=== PATIENT | female | born 1930 | race Caucasian/White ===

== ENCOUNTER 2017-01-23 23:35 | Inpatient (IN) | payer MEDICARE ==
[~2017-01-23] VITALS: Ht 162.6 cm; Wt 39.7 kg
--- NOTE | ~2017-01-23 | CON ---
PATIENT'S NAME: DIALLO COLEMAN [facility] AGE: 86 Y [address] ROOM: [place] [address] LOCATION: GICU ADMIT DATE: 01/23/2017 Consultation DISCHARGE DATE: FAMILY PHYSICIAN: PHYSICIAN, UNKNOWN ATTENDING PHYSICIAN: JUAN CORTES REFERRING PHYSICIAN: ODILIA HOGUE MD Consult for Dr. Cortes, hospitalist. This 86-year-old lady who lives alone, but her son and [id number]-mmm live close by and attend to her needs most of the time with her children and was admitted on 01/23/2017 with left facial droop and slurring of speech. She reportedly fell and possibly hit her head with contusion on the upper left side of the forehead above the eyebrow, which is at the present time, sutured. Not quite, I able to fully attend to the left side at the present time. She has left facial droop, slurring of speech, a little bit unable to follow multiple instructions; however, she can follow one or two steps with some cueing. She is weak on the left upper and lower extremity at the present time also. Past history of significance, 1. Hypothyroid. 2. Hypertension. 3. Low back pain, status post surgery. 4. Status post hysterectomy. 5. Status post gastric bypass. 6. Status post knee surgery. 7. Status post shoulder surgery. At the present time, she is reporting allergies to aspirin. VITAL SIGNS: Blood pressure 109/62, temperature 98.2, pulse 97, respirations 12. She is 5 feet 4 inches tall and weighs 40.3 kg. She is on the following medications. 1. Zosyn. 2. Normal saline 0.9%. 3. Vancomycin. 4. Lipitor. 5. Plavix. 6. Lovenox. 7. Protonix. 8. Fentanyl. 9. Bengay. PATIENT'S NAME: DIALLO COLEMAN [facility] AGE: 86 Y [address] ROOM: [id number] [place] [address] LOCATION: [facility] ADMIT DATE: 01/23/2017 Consultation DISCHARGE DATE: FAMILY PHYSICIAN: PHYSICIAN, UNKNOWN ATTENDING PHYSICIAN: JUAN CORTES 10. NaCl 0.9% as I stated above. 11. Tylenol. 12. Levothyroxine. 13. Inapsine. 14. Niferex. 15. Dalmane. 16. Surfak. 17. Prilosec. 18. Rocephin. 19. KCl. We will put on PT/OT, Speech. We will follow Speech recommendation regarding pureed diet and thickened liquids as prescribed. She is at risk of falling and needs to be assisted at all time when up. At the present time, we will put her on PT/OT and Speech. I plan to take her to rehab when she is stable provided she is okayed by the admitting physician for a period of about 2 to 3 weeks aiming to discharge on modified independence. All the above was explained to her, her son, and her [id number]. They verbalized understanding and agreement. Thank you for this referral. MD TRE CARLSON/kari /[id number] d: 01/25/17 1417 t: 01/26/17 0749, CONSULTATION REPORT
--- NOTE | ~2017-01-23 | CON ---
PATIENT'S NAME: DIALLO COLEMAN [facility] AGE: 86 Y [address] ROOM: [place] [address] LOCATION: [facility] ADMIT DATE: 01/23/2017 Consultation DISCHARGE DATE: FAMILY PHYSICIAN: PHYSICIAN, UNKNOWN ATTENDING PHYSICIAN: NALDO CORTES DATE OF CONSULTATION: 01/25/2017 REFERRING PHYSICIAN: Naldo Cortes MD. REASON FOR CONSULT: Left forehead laceration. HISTORY OF PRESENT ILLNESS: This is an 86-year-old female patient who was admitted to [facility] after a fall. She has a significant history of hypertension and hypothyroidism. She experienced an unwitnessed fall at home and reports hitting her head. Initial head CT was negative. She is from [place], [place]. She has intact Steri-Strips to her left forehead. She denies fevers. She reports 10/10 head pain. She admits to poor oral intake and weight loss. She denies chest pain. She complains of being cold and her mouth is dry. She also has a skin tear to her left forearm. No pressure ulcers noted. PAST MEDICAL HISTORY: Hypothyroidism, hypertension, hypercholesteremia, anemia, and atrial fibrillation. PAST SURGICAL HISTORY: Gastric bypass, bilateral knee replacement, shoulder surgery, toe surgery, spine fusion, hysterectomy. FAMILY HISTORY: Mother suffering from cancer and father had a stroke. SOCIAL HISTORY: The patient lives with her family in [place], [place]. She denies tobacco or alcohol use. ALLERGIES: SULFA, FOSAMAX, ASPIRIN, MORPHINE, TERRAMYCIN, MIRAPEX, SULFABENZAMIDE, SULFACETAMIDE, SULFATHIAZOLE. CURRENT MEDICATIONS: PATIENT'S NAME: DIALLO COLEMAN [facility] AGE: 86 Y [address] ROOM: [id number] [place] [id number] LOCATION: [facility] ADMIT DATE: 01/23/2017 Consultation DISCHARGE DATE: FAMILY PHYSICIAN: PHYSICIAN, UNKNOWN ATTENDING PHYSICIAN: NALDO CORTES Please refer to the medication administration record. REVIEW OF SYSTEMS: Pertinent positives addressed in the HPI and all others are negative. PHYSICAL EXAMINATION: VITAL SIGNS: Temperature 99.4, pulse 95, respirations 24, blood pressure 111/66, pulse oximetry 96%, height 5 feet 4 inches and weight 40.3 kg. GENERAL: The patient is alert and oriented x3. Appears thin and frail. HEENT: Obvious laceration to the left forehead and tenriism area. Steri-Strips intact with dry exudate noted. Anicteric sclerae. Oral mucosa dry. At times difficult to understand the patient due to dry mouth. Lips dry, cracked. CARDIOVASCULAR: Irregular rate noted on the monitor. ABDOMEN: Flat. EXTREMITIES: No edema. Heels intact. Obvious arthritic changes to bilateral feet. NEUROLOGICAL: Slight left-sided facial droop. SKIN: Left forehead and tenriism laceration with intact Steri-Strips. Dry bloody exudate noted. Slight ecchymosis. C-shaped skin tear to left posterior forearm. Majority of the wound is approximated with a skin flap. Scant bloody exudate noted. Area is ecchymotic. No other skin issues. Buttocks intact. LABORATORY DATA: Hemoglobin A1c 5.3, procalcitonin 0.72, TSH 0.005. White blood cell count 16.2, hemoglobin 10.3, hematocrit 30.8, platelets 330. Sodium 135, potassium 3.5, chloride 100, bicarb 26, BUN 20, creatinine 0.8, glucose 125, and albumin 2.2. ASSESSMENT AND PLAN: Again, this is an 86-year-old female patient who was admitted to [facility] after a fall. 1. Left forehead and temporal laceration secondary to fall on January 23. Steri-Strips intact to the site. We will leave intact until later this week and make further recommendations at that time. The patient was only able to tolerate mild cleansing as the site is tender to touch. 2. Left posterior forearm skin tear. We will initiate the skin tear protocol with Vaseline gauze and Kerlix changing daily. 3. Pressure ulcer prevention. The patient is to be turned bed q.2 hours side to side while in bed. Iris cushion is already in her chair. Certainly, she is at high risk for pressure ulceration as she is very thin and frail and currently n.p.o. Dietary is on board and she will have a modified barium swallow study today. I would like to thank Dr. Cortes for this consult. PATIENT'S NAME: STEPH COLEMANTA Nguyen [facility] AGE: 86 Y [address] ROOM: [id number], [place] [address] LOCATION: [facility] ADMIT DATE: 01/23/2017 Consultation DISCHARGE DATE: FAMILY PHYSICIAN: PHYSICIAN, CASEY ATTENDING PHYSICIAN: NALDO CORTES BOZENA MADISON MD MKS/kari /[id number] d: 01/25/17 1051 t: 02/03/17 1543, CONSULTATION REPORT
--- NOTE | ~2017-01-23 | DS ---
PATIENT'S NAME: DIALLO COLEMAN [facility] AGE: 86 Y [address] ROOM: [place] [address] LOCATION: [facility] ADMIT DATE: 01/23/2017 Discharge Summary DISCHARGE DATE: 01/27/2017 FAMILY PHYSICIAN: Mitch Thibodeaux MD ATTENDING PHYSICIAN: Naldo Tomlinson PRINCIPAL DIAGNOSES: 1. Right ischemic cerebrovascular accident. 2. Escherichia coli urinary tract infection. 3. Escherichia coli bacteremia. 4. Atrial fibrillation, new diagnosis. 5. Fall. 6. Left scalp laceration. 7. Essential hypertension. 8. Iatrogenic hyperthyroidism. 9. Chronic back pain. 10. Severe protein-calorie malnutrition. 11. Vitamin D deficiency. 12. Frequent falls. HOSPITAL COURSE: Please reference any of the admitting data to the history and physical as dictated by Dr. Tomlinson. Briefly, this is an 86-year-old female who suffered a fall and was seen in an outlying facility where she was found to be in atrial fibrillation. She had some left-sided facial droop and slurred speech. A CT scan of her head was unremarkable. Neurology was contacted, and tPA was not recommended. The patient was transferred to [facility] for further evaluation and management. She was then admitted under the hospitalist. Initial presentation showed she was in atrial fibrillation with controlled ventricular rate. Blood pressures were stable. Her initial troponin was 0.404. An EKG showed left bundle-branch block. For this, a cardiology consultation was obtained. The patient was asymptomatic. She was hemodynamically stable. Her cardiac enzymes were trended and fell to 0.3 and 0.2 respectively. An echocardiogram showed preserved left ventricular ejection fraction of 50% to 55%. Left atrium was severely dilated. There was no evidence of PFO or ASD. They did not feel there was any indication for further intervention. Recommendations were given for anticoagulation when okay with Neurology. In the meantime, the patient was also placed on the stroke non-tPA order set. Neurology consultation was obtained. An MRI of the brain showed findings consistent with an acute ischemic infarct in the right cerebral hemisphere at the posterior right frontal region and adjacent parietal parenchyma area PATIENT'S NAME: DIALLO COLEMAN [facility] AGE: 86 Y [address] ROOM: [place] [address] LOCATION: GICU ADMIT DATE: 01/23/2017 Discharge Summary DISCHARGE DATE: 01/27/2017 FAMILY PHYSICIAN: Mitch Thibodeaux MD ATTENDING PHYSICIAN: Naldo Tomlinson involving the gaspar matter and white matter. She has a history of an allergy to aspirin, so she was placed on Plavix and high-dose statin therapy. She was placed on appropriate restorative cares with physical, occupational, and speech therapy. A physiatry consult was obtained. She was allowed for permissive hypertension before resuming her home beta-priyank for rate control 5 days after her stroke. The patient also presented with an elevated white blood cell count of 16,000. She was afebrile, but infectious workup found a positive urinalysis as well as positive blood culture. She had been empirically started on Zosyn, and when the blood culture data returned positive, she was started on vancomycin also. Final results showed E coli in her urine as well as E coli in her blood. A second blood culture showed Staph hominis sub species felt to be probable contaminant. So, the vancomycin was stopped, and her IV antibiotics were changed from Zosyn to Rocephin. We saw an overall improvement in her white blood cell count. Repeat blood cultures were negative. She was then transitioned to oral Levaquin at the time of discharge for recommendations for a total of 10-day antibiotic treatment. The patient did make some progress with therapies, and Dr. Cason felt that she was appropriate for transition to rehab. Recommendations for long-term anticoagulation were given by Cardiology once clearance given from a neurology perspective. A repeat CT scan was ordered for one week after discharge and will require followup. The remaining of her chronic conditions were maintained by her home medicines. She was given dietary and nutritional education and supplemental nutrition. Wound Care was also consulted for her left forehead laceration which was Steri- Stripped closed and appropriately cared for. LABORATORY AND DIAGNOSTIC DATA: Laboratory results: Initial white count of 16,000 with left shift had resolved in 24 hours. Her hemoglobin was between 8 and 10. Platelet count within normal limits. Chemistry panel most recent at the time of discharge showed a glucose of 101; BUN 15; creatinine 0.5; sodium 146; potassium 4.1, this did have to be corrected from 2.7 earlier in her stay; chloride of 115; CO2 of 24; and calcium of 8.1. Liver functions within normal limits. GFR greater than 60. Her hemoglobin A1c was 5.3. Total cholesterol was 109, triglycerides 118, HDL of 34, and LDL of 52. Her urinalysis upon presentation showed yellow turbid urine with positive leukocytes and positive nitrites. There were 30 proteins. It was negative for glucose, ketones, urobilinogen, and bilirubin. Microanalysis showed many bacteria with 50 to 100 white blood cells and was cultured out as positive for E coli. Her initial procalcitonin level was 0.72. Her TSH was less than 0.005 and free T4 of 2.7. PATIENT'S NAME: DIALLO COLEMAN [facility] AGE: 86 Y [address] ROOM: [id number], [place] [address] LOCATION: [facility] ADMIT DATE: 01/23/2017 Discharge Summary DISCHARGE DATE: 01/27/2017 FAMILY PHYSICIAN: Mitch Thibodeaux MD ATTENDING PHYSICIAN: Naldo Tomlinson Microbiology data: Blood culture from 01/24 showed E coli. Second blood culture grew Staph hominis sub species. Repeat blood cultures were negative. C diff test was negative. Radiologic imaging: An MRI of the brain with and without contrast showed an acute ischemic infarct in the right cerebral hemisphere at the posterior right frontal region and adjacent parietal parenchyma. Area of infarct involving the gaspar matter and white matter. She had generalized atrophic changes with white matter small vessel ischemic changes. There was also a small area of encephalomalacia from an old infarct in the inferior left cerebral hemisphere. There was no enhancing mass, midline shift, or abnormal extra-axial fluid collections. An MRA of the brain showed no vessel cut-off or focal area of stenosis identified at the [place]. There was a dominant left vertebral artery with small right vertebral artery. There was no aneurysm identified. An MRI of the neck showed no stenosis identified at the carotid bulb or origin of the internal carotid artery on the right or left. A chest x-ray showed cardiac enlargement with mild vascular congestion. There was diffuse interstitial prominence, likely reflecting interstitial edema. A right shoulder 2-view showed no acute fracture of the shoulder and bone osteopenia. Modified barium swallow study showed aspiration of thin liquid material and a mild delay in swallow initiation. A C-spine CT showed no acute findings. Cardiovascular Services: An echocardiogram showed a left ventricular ejection fraction of 50% to 55% with a left atrium that was severely dilated. There was no evidence of PFO or ASD by bubble study. There was a moderately sclerotic aortic valve and mild aortic regurgitation. She had mild pulmonary hypertension and positive for pleural effusion. DISCHARGE MEDICATIONS: 1. Vitamin C 1000 mg p.o. every day. 2. Atenolol 50 mg p.o. twice daily, hold for systolic blood pressure less than 100 or heart rate less than 60. 3. Lipitor 40 mg p.o. every evening at 2100 hours. 4. Vitamin D 1000 units p.o. every day. 5. Plavix 75 mg p.o. every morning. 6. Vitamin B12 at 1000 mcg subcu every 30 days. Next date of administration PATIENT'S NAME: DIALLO COLEMAN [facility] AGE: 86 Y [address] [id number] [address] LOCATION: [facility] ADMIT DATE: 01/23/2017 Discharge Summary DISCHARGE DATE: 01/27/2017 FAMILY PHYSICIAN: Mitch Thibodeaux MD ATTENDING PHYSICIAN: Naldo Tomlinson 02/22 at 0900 hours. 7. Lovenox 40 mg subcutaneous every day. 8. Fentanyl patch 12 mcg transdermally every 72 hours. 9. Lactobacillus one tablet p.o. every day. 10. Levothyroxine 125 mcg p.o. every day, this is a dose reduction. 11. Protonix 40 mg p.o. every day at 0700 hours. 12. Tylenol 650 mg p.o. every 4 hours as needed. 13. Lidocaine intradermal for IV starts. 14. Menthol 6%/menthyl salicylate topically to the lower back 4 times daily as needed. 15. Sodium chloride 10 mL flush as needed. 16. Gabapentin 100 mg p.o. twice daily. 17. Levaquin 750 mg p.o. every day for 5 more doses to equal a 10-day total of antibiotics administered. DISCHARGE INSTRUCTIONS: The patient will be transitioned to inpatient rehab under the care of Dr. Brandt Cason. We will continue to follow along as hospitalist for medical management. We will also have [facility] with Halima Kraus APRN, to follow from a neurologic perspective. A followup CT scan of the head without contrast has been ordered for one week. At that time, will require review from the neurology team, and if deemed appropriate, would like to initiate anticoagulation. Diet as per the Speech recommendations. Currently, the patient is improving; however, still requiring a modified diet. Health supplement is to be 3 times daily and as needed given she is a malnourished lady. Her weightbearing status is as tolerated. Fall precautions appropriately. Occupational, physical, and speech therapy to be directed by the physiatry team. Oxygen saturations are to be monitored, and if less than 90%, she should have application of oxygen. Followup laboratory data should be a thyroid-stimulating hormone and a free T4 in 6 weeks. She was significantly suppressed on her therapy of 225 mcg daily. We have now cut this back to 125 mcg daily and will follow accordingly. The left forehead laceration is Steri-Strip closed and cared for per the [facility] team. We will have them to continue to follow along while the patient is in inpatient rehab to provide appropriate recommendations and care of the wound. Rehab potential is good. Discharge potential is good. The patient and the family are well aware of her condition and prognosis. The patient requests to be do not intubate and do not resuscitate. We will continue those wishes as PATIENT'S NAME: DIALLO COLEMAN [facility] AGE: 86 Y [address] ROOM: [place] [address] LOCATION: [facility] ADMIT DATE: 01/23/2017 Discharge Summary DISCHARGE DATE: 01/27/2017 FAMILY PHYSICIAN: Mitch Thibodeaux MD ATTENDING PHYSICIAN: Naldo Tomlinson she transitions to next level of care. Total time arranging discharge is greater than 30 minutes. The above line of information and management was discussed with the patient, and all questions were answered with statements of satisfaction. Thank you for allowing us to participate in the care of this patient while at [facility]. ROSARIO ORTEZ APRN, BOZENA FOR MD EHSAN PACHECO/kari /[id number] d: t: 02/03/17 1423, DISCHARGE SUMMARY
--- NOTE | ~2017-01-23 | HP ---
PATIENT'S NAME: DIALLO COLEMAN [facility] AGE: 86 Y [address] ROOM: [id number] [place], [place] [address] LOCATION: [facility] ADMIT DATE: 01/23/2017 History & Physical DISCHARGE DATE: FAMILY PHYSICIAN: PHYSICIAN, UNKNOWN ATTENDING PHYSICIAN: JUAN CORTES DATE OF SERVICE: CHIEF COMPLAINT: Fall, left-sided facial droop, and some slurred speech. HISTORY OF PRESENT ILLNESS: This is an 86-year-old female who lives at home with her family members. The story is that today around 5:30 p.m. on January 23, 2017, the patient suffered a fall at home. Was found by her grandchildren. The patient did hit her head in the left frontal area, but she denies any loss of consciousness and there was no seizure activity. The grandchild who found the patient called the patient's daughter and they came home and called the ambulance. The patient was brought to the outside facility at [place] for evaluation. Over there, CT of the head was performed and based on the verbal report given to me it was unremarkable. Blood work was remarkable for hypokalemia with potassium 2.6, and the troponin was found to be elevated at 0.387. EKG was performed over there and showed atrial fibrillation, not in RVR with left bundle-branch block. The patient denies any chest pain or shortness of breath. The patient also denies any weakness or any sensation loss. The patient also denies any vision loss or blurry vision. Her kidney function was normal, creatinine was 0.74, GFR was 74 at outside facility. Due to the concern for stroke, on-call neurologist was contacted and the patient was transferred here for further care. Given that the patient's symptoms were already totally resolved by the time Neurology was contacted, tPA was not recommended at that time. Regarding the troponin elevation, I spoke to the on- call conservation enforcement officer, and the plan will be cycle cardiac enzymes given that the patient does not have any chest pain and also given that in the event the patient will have a stroke anticoagulation will be contraindicated due to the risk of hemorrhagic conversion. We will get an echo in the morning and EKG again in the morning and will be seen by Cardiology in the morning. The patient was transferred here for further care. REVIEW OF SYSTEMS: As mentioned in the history of present illness. All other systems were reviewed and they were negative except those mentioned in the history of present illness. PAST MEDICAL HISTORY: 1. Hypothyroidism. PATIENT'S NAME: DIALLO COLEMAN [facility] AGE: 86 Y [address] ROOM: [id number] [place] [id number] LOCATION: [facility] ADMIT DATE: 01/23/2017 History & Physical DISCHARGE DATE: FAMILY PHYSICIAN: PHYSICIAN, UNKNOWN ATTENDING PHYSICIAN: JUAN CORTES 2. Hypertension. The patient denies any other medical problem. Family members also deny any other medical problem. SOCIAL HISTORY: The patient denies any cigarette or illegal drug use or alcohol. FAMILY HISTORY: Father from some kind of blood cancer at old age. Mother had a stroke at old age. PAST SURGICAL HISTORY: 1. Lower back surgery. 2. Hysterectomy. 3. Gastric bypass surgery. 4. Knee surgery. 5. Shoulder surgery. ALLERGIES: ASPIRIN WHICH CAUSES RASH. HOME MEDICATIONS: Currently has been reconciled. PHYSICAL EXAMINATION: VITAL SIGNS: At the time of dictation, temperature is 99, heart rate 86, respirations 16, blood pressure 114/80, and saturation 94% on room air. GENERAL APPEARANCE: The patient is alert and oriented x3, in no acute distress. HEENT: Pupils equally round and reactive to light. Extraocular muscles intact. Anicteric sclerae. Nasal turbinates are normal bilaterally. Moist oral mucosa. NECK: No JVD. CARDIOVASCULAR: Regular rate and rhythm. No murmur, no rubs, and no gallops. Normal S1 and S2. RESPIRATORY: Clear to auscultation. ABDOMEN: Soft, nontender, nondistended. Bowel sounds present. No mass. EXTREMITIES: No edema in upper or lower extremities. NEUROLOGICAL: Alert and oriented x3. No obvious slurred speech, but sometimes she mumbles. Slight left-sided facial droop. Slight tongue deviation to the left side upon protrusion. She chronically has left upper extremity weakness due to her prior left shoulder surgery. Pronator drift only can be performed on the right upper extremity due to the left shoulder surgery in the left arm and the pronator drip was negative on the right upper PATIENT'S NAME: DIALLO COLEMAN [facility] AGE: 86 Y [address] ROOM: [id number] [place], [place] [address] LOCATION: [facility] ADMIT DATE: 01/23/2017 History & Physical DISCHARGE DATE: FAMILY PHYSICIAN: PHYSICIAN, UNKNOWN ATTENDING PHYSICIAN: JUAN CORTES extremity. Sensation intact. Jlwwzc-mw-npyr intact. Nesh-ng-acip intact. Muscle strength about 4/5 in right upper extremity, 2/5 in the left upper extremity. 5/5 in bilateral lower extremities. Babinski negative. Proprioception and vibration intact. Visual white intact. Deep tendon reflex +2 at both knees. SKIN: laceration and wound in left frontal area. Does not look infected, no active bleeding. No rash, no cyanosis. LABORATORY DATA: Currently only has a few which are CPK 32, troponin 0.4, proBNP 9364, glucose 123, BUN 22, creatinine 0.7, sodium 136, potassium 4.1, chloride 100, CO2 of 28, calcium 8.7, GFR more than 60, CK-MB 2.0. The rest is pending. IMAGING STUDIES: CT of the head without contrast from the outside facility, verbally given to me was unremarkable. EKG from the outside facility on January 23, 2017, at 6:29 p.m. showed atrial fibrillation, heart rate of 97, QRS of 144 with left bundle-branch block. Repeat EKG on January 23, 2017, at 9:04 p.m. showed atrial fibrillation, heart rate of 95, QRS 136 milliseconds, and still with left bundle-branch block pattern. EKG here on admission on, January 24, 2017, at 12:14 a.m. shows some atrial fibrillation, heart rate of 94, QRS of 138 milliseconds, still with the left bundle-branch block pattern. ASSESSMENT/PLAN: 1. Regarding her facial droop and slurred speech: We will get an MRI of the brain and MRA of the brain and neck tomorrow morning. Continue current medication with p.o. Lipitor and also p.o. Plavix. The patient has allergy to aspirin, therefore, I have given her p.o. Plavix. Echo in the morning. Follow up with Neurology. PT and OT. Bedside dysphagia screen; if passes, can have a cardiac diet. If fails, then will be n.p.o. and have a formal speech and swallow evaluation. Further plan depends on clinical course. Will check urine analysis. 2. Regarding her troponin elevation: Continue cycling cardiac enzymes. The patient does not have any chest pain. EKG has left bundle-branch block. Therefore, it is hard to interpret it. Given that the patient could have a stroke but is not quite clear at the moment, therefore, blood thinner is not a good choice at this point because it could cause hemorrhagic transformation in the brain if the patient indeed had a stroke. Given that the patient is hemodynamically stable and no chest pain, therefore, after speaking to the on-call conservation enforcement officer Dr. Kat, the plan will be cycling cardiac enzymes, and if it is more than 5, then on-call conservation enforcement officer will PATIENT'S NAME: DIALLO COLEMAN [facility] AGE: 86 Y [address] ROOM: [id number] [place] [address] LOCATION: [facility] ADMIT DATE: 01/23/2017 History & Physical DISCHARGE DATE: FAMILY PHYSICIAN: PHYSICIAN, UNKNOWN ATTENDING PHYSICIAN: JUAN CORTES take the patient to the microbiology lab manager. Echo in the morning and EKG again in the morning. I will not do p.o. Lopressor given that in the setting of possible stroke I want to keep the blood pressure on the higher end. She also has a high proBNP. This could be the cause of troponin elevation. I will get a chest x-ray to see if there is any pleural effusion suggesting heart failure. Clinically, the patient does not look volume overloaded and is saturating at 96% on room air. However, I will get a chest x-ray to see for any evidence of vascular congestion or pleural effusion. Further plan will depend on clinical course. 3. Regarding her atrial fibrillation: Not sure if this is new or this is old. Family members do not know and the patient also does not. I will defer to Cardiology for evaluation in the morning. For now, the rate is under good control in the 80s. I will check a TSH and free T4. 4. Regarding her hypertension: Home medications are currently being reconciled. I will hold all the home medications for now to try to keep the blood pressure on the higher end. 5. Regarding her deep venous thrombosis prophylaxis: She will be getting subcu Lovenox. 6. She is do not resuscitate/do not intubate. Time spent in care on the day of admission is 50 minutes where 30 minutes were spent on counseling by answering the family members' questions and concerns and the patient's questions and concerns to their satisfaction. Also includes going over the plan of care with the patient and her family members. The remainder of the time was spent on interview and chart review and also on physical examination. Further plan will depend on clinical course. MD DEVONTE ARNOLD/kari /[id number] D: [id number] T: 211 HISTORY & PHYSICAL
--- NOTE | ~2017-01-23 | ECHO ---
Transthoracic Echocardiography Report (TTE) Demographics Patient Name DIALLO COLEMAN Date of Study 01/24/2017 Patient Number [id number] Visit Number [id number] Date of 1930 Room Number P3975SX Accession Number [id number] Gender Female Age 86 year(s) Referring Bushra Hermosillo MD Tunnel Kiln Operator Ignacia Hector RD, Physician RVT Physician Interpreting Shey Barba Head Nurse Physician Bulmaro NORTH Supervising Ordering Physician Bushra Hermosillo MD, MD/MLP Nurse Stress Web Machine Tender Conclusions Contractility Score Summary Normal Left Ventricular contractility was noted. Summary The estimated left ventricular ejection fraction is 50-55%. Mild concentric left ventricular hypertrophy. Mildly reduced right ventricular function. The left atrium is severely dilated by LA volume index measurement. Informed consent was obtained, bubble study was done, there is no evidence for a PFO or ASD. The aortic valve is moderately sclerotic. There is mild aortic regurgitation by color Doppler. Mild-moderate tricuspid regurgitation by color Doppler. There is mild pulmonary hypertension. The pulmonary pressure (RVSP) is 39.58 mmHg. Pleural effusion present. Procedure Type of Study TTE procedure:2D Echocardiogram. Procedure Date Date: 01/24/2017 Start: 11:50 AM Study Location: Inpatient Portable Technical Quality: Adequate visualization Indications:Elevated Troponin. Appropriate Use Criteria: 9 Patient Status: Routine Contrast Medium: Bubble Study. Rhythm: Atrial fibrillation HR: 105 bpm BP: 113/60 mmHg M-Mode/2D Measurements LV Diastolic Dimension: 3.22 cm LV Systolic Dimension: 2.19 cm LV Septum Diastolic: 1.02 cm LV PW Diastolic: 1.02 cm Cardiac Output: 3.71 l/min LA volume: 78 ml RV Diastolic Dimension: 3.18 cm LVOT: 1.8 cm LVOT VTI: 13.9 cm LV Stroke volume: 35.35 ml RV Mid: 1.83 cm RV Length: 4.84 cm TAPSE: 1.43 cm TDI-S': 10.5 cm/s Doppler Measurements AV Peak Velocity: 1.69 m/s MV Peak E-Wave: 1.05 m/s AV Peak Gradient: 11.42 mmHg AV Mean Gradient: 6 mmHg LVOT Peak Velocity: 0.76 m/s AV P1/2t: 510 msec PV Peak Velocity: 1.01 m/s TR Velocity:2.81 m/s PV Peak Gradient: 4.08 mmHg TR Gradient:31.58 mmHg Estimated PASP: 39.58 mmHg Estimated RAP:8 mmHg Estimated RVSP: 40 mmHg E' Septal Velocity: 0.08 m/s E' Lateral Velocity: 0.12 m/s Findings Left Ventricle Mild concentric left ventricular hypertrophy. Diastolic function indeterminate due to patient's arrhythmia. Right Ventricle Mildly reduced right ventricular function. Left Atrium The left atrium is severely dilated by LA volume index measurement. Informed consent was obtained, bubble study was done, there is no evidence for a PFO or ASD. Right Atrium Normal right atrial size. Mitral Valve Mild mitral regurgitation by color Doppler. Mild mitral annular calcification. Aortic Valve The aortic valve is moderately sclerotic. There is mild aortic regurgitation by color Doppler. Tricuspid Valve Mild-moderate tricuspid regurgitation by color Doppler. There is mild pulmonary hypertension. The pulmonary pressure (RVSP) is 39.58 mmHg. Pulmonic Valve Trivial pulmonic valve regurgitation by color Doppler. Pericardial Effusion No evidence of pericardial effusion. Miscellaneous Visualized portions of the aortic root and ascending aorta appear normal in size. Pleural Effusion Pleural effusion present. Contractility Score LV regional wall motion:(0-Non visualized 1-Normal 2-Hypokinesis 3-Akinesis 4-Dyskinesis 5-Aneurysm) Signature dtt: Kennedy Kat dtd: 01/24/17 1150 Physician Self Edit
--- NOTE | ~2017-01-23 | CON ---
PATIENT'S NAME: DIALLO COLEMAN [facility] AGE: 86 Y [address] [id number] [address] LOCATION: GICU ADMIT DATE: 01/23/2017 Consultation DISCHARGE DATE: FAMILY PHYSICIAN: PHYSICIAN, UNKNOWN ATTENDING PHYSICIAN: JUAN CORTES DATE OF CONSULTATION: 01/24/2017 REFERRING PHYSICIAN: ODILIA HOGUE MD REASON FOR CARDIOLOGY CONSULTATION: Atrial fibrillation and possible stroke. HISTORY OF PRESENT ILLNESS: This is an 86-year-old female who experienced an unwitnessed fall at home in which she hit her head. Her granddaughter was a next room when it happened. She underwent a head CT in an outside medical facility which was reportedly negative. She is undergoing MRI of her brain today. Her past medical history includes hypertension and hypothyroidism, but she denies any other past medical history. Her normal primary care provider, Dr. Mitch Thibodeaux from [place], [place]. There are some complaints of recent weight loss, but she is normally able to ambulate with a wheeled walker at home without difficulty. She denies any dizziness, presyncope, or syncope as well as chest pain, shortness of breath, palpitations, nausea, or vomiting. Her EKG shows an atrial fibrillation with controlled ventricular response. She also has a left bundle-branch block. PAST MEDICAL HISTORY: As listed in the HPI. FAMILY HISTORY: The patient's father had a history of "blood cancer." Her mother had a stroke. PAST SURGICAL HISTORY: 1. Hysterectomy. 2. Gastric bypass. 3. Knee and shoulder surgery. 4. Lower back surgery. SOCIAL HISTORY: The patient denies ever using tobacco. She also denies alcohol or illicit drug use. CURRENT MEDICATIONS: 1. Zosyn 3.37 g IV every 8 hours. PATIENT'S NAME: DIALLO COLEMAN [facility] AGE: 86 Y [address] ROOM: [id number] [place] [address] LOCATION: GICU ADMIT DATE: 01/23/2017 Consultation DISCHARGE DATE: FAMILY PHYSICIAN: PHYSICIAN, UNKNOWN ATTENDING PHYSICIAN: JUAN CORTES 2. Lipitor 40 mg p.o. daily in the evening. 3. Plavix 75 mg p.o. daily. 4. Protonix 40 mg p.o. daily. 5. Lovenox 40 mg subcu daily. 6. Duragesic patch 12 mcg transdermally every 72 hours. MEDICATION ALLERGIES: Include sulfa, morphine, Terramycin, sulfathiazole, Fosamax, and Mirapex. REVIEW OF SYSTEMS: Pertinent positive review of systems as listed in the HPI. All other review of systems were evaluated and negative. DIAGNOSTIC DATA: Cardiac enzymes so far shows a CPK of 32 then 30, CK-MB of 2.0 then 0.6, and troponin I of 0.404 then 0.307. She has a proBNP level of 10,786. CMS evaluation shows sodium of 135, potassium 3.5, BUN of 20, creatinine 0.8, and glucose of 125. PHYSICAL EXAMINATION: VITAL SIGNS: Temperature 98.0, pulse 96, respirations 16, blood pressure 105/68, and O2 saturation 95% on room air. The patient weighs 40.3 kg. SKIN: Slightly pale, but warm and dry. EYES: Sclerae are clear. No xanthelasmas. ENT: Oral mucosa is pink and moist. No jugular venous distention or carotid bruits. CHEST: Respirations are even and unlabored. Lung sounds are diminished to the left lower lobe. HEART: Irregular rate and rhythm. Normal S1 and S2. ABDOMEN: Soft and nontender. MUSCULOSKELETAL: Equal muscle strength in upper and lower extremities bilaterally against resistance. She does have weakness with full range of motion to her left upper extremity due to previous shoulder surgeries. EXTREMITIES: Peripheral pulses palpable. No clubbing or cyanosis noted. Does have trace lower extremity edema present. PSYCH: Alert and oriented. Her speech is slurred and she does have noted left facial droop. She is alert and oriented to person, place, time, and situation. IMPRESSION AND PLAN: Per Dr. Kat. 1. Atrial fibrillation, presumably new onset. The patient denies any previous history and she is currently not in a rapid ventricular response. We will hold off on anticoagulation at this time due to risk of bleeding with her recent head trauma. PATIENT'S NAME: DIALLO COLEMAN [facility] AGE: 86 Y [address] ROOM: [place] [address] LOCATION: [facility] ADMIT DATE: 01/23/2017 Consultation DISCHARGE DATE: FAMILY PHYSICIAN: PHYSICIAN, UNKNOWN ATTENDING PHYSICIAN: JUAN CORTES 2. Hypertension, currently well controlled. 3. Slurred speech. Once again, she had a negative head CT, but is currently undergoing MRI under the care of the Hospitalist Service. 4. Congestive heart failure based off her proBNP level. We will check an echocardiogram to distinguish between diastolic versus systolic heart failure. We will also check an echocardiogram to fully evaluate ejection fraction as well as look for wall motion valvular abnormalities. We will attempt to get the last office notes from her primary care provider, and any other previous EKGs to fully evaluate her bundle-branch block. We will continue to monitor, evaluate, and treat as appropriate. Thank you for this consult. Thank for allowing [facility] to interact in the care of this patient. MONIKA RODRIGUEZ APRN FOR MD LIZ BRUCE/kari /[id number] d: 01/24/17 1825 t: 02/01/1713, CONSULTATION REPORT
--- NOTE | ~2017-01-23 | CON ---
PATIENT'S NAME: DIALLO BARTHOLOMEW [facility] AGE: 86 Y [address] [place]OM: [id number] [address] LOCATION: [facility] ADMIT DATE: 01/23/2017 Consultation DISCHARGE DATE: FAMILY PHYSICIAN: Mitch Thibodeaux MD ATTENDING PHYSICIAN: JUAN CORTES DATE OF CONSULTATION: 01/26/2017 REFERRING PHYSICIAN: ODILIA HOGUE MD ADDENDUM: Asked to see this patient, Diallo Bartholomew, in Telemedicine consultation. Consultation was performed in conjunction with nurse practitioner, Halima Kraus, on 01/26/2017. History was reviewed as well as charts review was conducted with Halima Kraus. Imaging reports and images pertinent to the case were reviewed and discussed. The patient was reassessed with nurse practitioner. Ly portions were repeated on examination. I agree with the discussed assessment and plan of care. Total time spent evaluating the patient with the nurse practitioner physician 40 minutes. Meghan Damian MD Neurology Telespecialist Services MEGHAN DAMIAN MD MNZ/modl /[id number] CC: [employer] TELEMEDICINE d: t: 01/27/17 0839, CONSULTATION REPORT
--- NOTE | ~2017-01-23 | CON ---
PATIENT'S NAME: DIALLO COLEMAN [facility] AGE: 86 Y [address] ROOM: [place] [address] LOCATION: GICU ADMIT DATE: 01/23/2017 Consultation DISCHARGE DATE: FAMILY PHYSICIAN: Mitch Thibodeaux MD ATTENDING PHYSICIAN: JUAN CORTES DATE OF CONSULTATION: 01/26/2017 REFERRING PHYSICIAN: ODILIA HOGUE MD TIME: 1105 a.m. CHIEF COMPLAINT: Left-sided facial droop. HISTORY OF PRESENT ILLNESS: This is an 86-year-old female who lives at home with her family. On January 23, she was found down at home. She did not have loss of consciousness. She did hit her head in the left frontal area. The grandchild who found the patient called the squad, and she went to the hospital a [facility]. The CT of the head was negative at [facility] per verbal report. Blood work was remarkable for hypokalemia of 2.6, and the troponin was elevated at 0.387. An EKG done there showed atrial fibrillation. The patient was, therefore, transferred to us for further workup. Due to the concern for stroke, Neurology was consulted, and the patient was not a tPA candidate because she was out of the window at that time. Today, the patient is examined in the NTU. REVIEW OF SYSTEMS: All systems were reviewed and are negative except those mentioned in the HPI. PAST MEDICAL HISTORY: 1. Hypothyroidism. 2. Hypertension. 3. The patient denies any other medical problems. SOCIAL HISTORY: The patient denies any cigarette or illegal drug use history or alcohol use. She does live with her family. FAMILY HISTORY: Her father from a cancer of the blood at an old age. Her mother did have a stroke at old age. PAST SURGICAL HISTORY: PATIENT'S NAME: DIALLO COLEMAN [facility] AGE: 86 Y [address] ROOM: [address] [address] LOCATION: CU ADMIT DATE: 01/23/2017 Consultation DISCHARGE DATE: FAMILY PHYSICIAN: Mitch Thibodeaux MD ATTENDING PHYSICIAN: JUAN CORTES 1. Lower back surgery. 2. Hysterectomy. 3. Gastric bypass surgery. 4. Knee surgery. 5. Shoulder surgery. ALLERGIES: ASPIRIN WHICH CAUSES A RASH. HOME MEDICATIONS: Include: 1. Fentanyl 12 mcg patch q.72 hours. 2. Lactobacillus one capsule p.o. daily. 3. Gabapentin 100 mg p.o. q.6 hours. 4. Atenolol 50 mg p.o. b.i.d. 5. Hydrochlorothiazide 12.5 mg p.o. daily. 6. Levothyroxine 100 mcg p.o. daily. 7. Levothyroxine 125 mcg p.o. daily. 8. Potassium chloride 20 mEq p.o. daily. 9. Vitamin B12 one dose subcu q.30 days. 10. Nexium 40 mg p.o. daily. 11. Ibuprofen 400 mg p.o. q.8 hours p.r.n. pain. 12. Vitamin D3 at 1000 units p.o. daily. 13. Ascorbic acid 1000 mg p.o. daily. PHYSICAL EXAMINATION: VITAL SIGNS: At the time of the exam, her temperature is 98.2, heart rate is 112, respirations 16, blood pressure is 122/78, and she is saturating 94% on room air. GENERAL APPEARANCE: The patient is alert, oriented, and pleasant, in no acute distress. She does appear very slight of build and musculature. HEENT: Pupils are equal, round, and reactive to light. Extraocular muscles intact. NECK: No JVD. No nuchal rigidity. CARDIOVASCULAR: Regular rate and rhythm without murmurs, rubs, or gallops. Normal S1 and S2. RESPIRATORY: Clear to auscultation. ABDOMEN: Soft, nontender, and nondistended with positive bowel sounds. NEUROLOGIC: She is alert and oriented x3. Her NIH Stroke Scale is as follows: Level of consciousness 0, month and age 0, open and close eyes 0, best gaze 1, visual field testing 1, facial paresis 1, left arm 2, right arm 0, left leg 1, right leg 0, limb ataxia 1, sensory 0, best language 1, dysarthria 1, extinction and inattention 1, for a total NIH stroke score of 10. Of note, she has issues with her left shoulder due to surgery, so the exam is limited by her baseline status. PATIENT'S NAME: DIALLO COLEMAN [facility] AGE: 86 Y [address] ROOM: [id number] [place] [address] LOCATION: [facility] ADMIT DATE: 01/23/2017 Consultation DISCHARGE DATE: FAMILY PHYSICIAN: Mitch Thibodeaux MD ATTENDING PHYSICIAN: JUAN CORTES LABORATORY DATA: As far as the stroke workup goes, her LDL was 52. Her proBNP was greater than 10,000, and her TSH was less than 0.005. She did have a repeat EKG at our facility which still showed the atrial fibrillation. IMAGING STUDIES: The MRI of the brain shows an acute ischemic infarct at the right cerebral hemisphere at the posterior right frontal region and adjacent parietal parenchyma. Area of infarcting involves gaspar matter and white matter. She also has some white matter small-vessel ischemic changes. Also present is a small area of encephalomalacia from an old infarct at the inferior left cerebellar hemisphere. No enhancing mass, midline shift, or abnormal extra- axial fluid collection was identified on the brain MRI study. As far as the MRA of her brain, there is no vessel cut off or focal areas stenosis identified at the [place]. She has dominant left vertebral artery with a small right vertebral artery. No aneurysm identified at [place]. The MRA of the neck shows no stenosis identified at the carotid bulb or origin of the internal carotid artery on the right or left. There was flow demonstrated in both vertebral arteries. She also had an echocardiogram which shows normal left ventricular contractility with an estimated ejection fraction of 50% to 55%. There is a left atrium that is severely dilated. No evidence for PFO or ASD as evidenced by bubble study. Mild pulmonary retention at 39.58. ASSESSMENT AND PLAN: 1. Ischemic stroke in the right MCA territory. The patient is allergic to aspirin. Therefore, agree with Plavix. Her LDL is 52, and she is on atorvastatin. Due to the location of this and the patient's new atrial fibrillation, this certainly could definitely be a cardioembolic event. Would recommend waiting one week and getting another CT scan to check for any hemorrhagic conversion before initiating any kind of anticoagulant. 2. Hyperthyroidism. Agree with holding her levothyroxine as this may have caused the whole cascade of atrial fibrillation to ischemic stroke. 3. Dysphagia. Speech Therapy is evaluating and treating the patient for dysphagia. 4. Stroke rehabilitation. Physical Therapy and Occupational Therapy are currently assessing the patient. 5. Discharge plans. The patient did mention that there is discussion about not going home after the stroke. We will definitely defer to hospitalist and care management regarding placement. Time spent in care of this patient with Dr. Carey included 40 minutes. The plan of care was discussed with the patient and relayed to the hospitalist team. Questions were answered to the best of our ability by the patient. Further plan will depend on clinical course. PATIENT'S NAME: DIALLO COLEMAN [facility] AGE: 86 Y [address] ROOM: [place] [address] LOCATION: [facility] ADMIT DATE: 01/23/2017 Consultation DISCHARGE DATE: FAMILY PHYSICIAN: Mitch Thibodeaux MD ATTENDING PHYSICIAN: JUAN CORTES Thank you for the opportunity to see this patient. If you have any questions, please do not hesitate to notify us. LIDA OMALLEY APRN FOR AASHISH CAREY MD PP/kari /[id number] d: 01/26/17 1312 t: 01/30/17 1202, CONSULTATION REPORT
[2017-01-24] MEDS ORDERED: DURAGESIC1 EAC3 TRANS (00:13)
[2017-01-24] MEDS ORDERED: PROBIOTIC1 EAC1 PO (00:14)
[2017-01-24] MEDS ORDERED: NEURONTIN100 MG PO (00:14)
[2017-01-24] MEDS ORDERED: TENORMIN25 MG PO (00:15)
[2017-01-24] MEDS ORDERED: HYDRODIURIL12.5 MG PO (00:15)
[2017-01-24] MEDS ORDERED: LEVOTHROID (S100 MCG PO (00:16)
[2017-01-24] MEDS ORDERED: LEVOTHROID (S125 MCG PO (00:17)
[2017-01-24] MEDS ORDERED: KCL UD LIQ20 MEQ/15 PO (00:18)
[2017-01-24 00:44] LABS: ANION GAP 12.1 (10.0-19.0); BLOOD UREA NITROGEN 22 mg/dL (6-24); CALCIUM 8.7 mg/dL (8.5-10.5); CHLORIDE 100 mMol/L (96-110); CO2 28 mMol/L (22-32); CPK 32 IU/L (21-215); CREATININE 0.7 mg/dL (0.5-1.1); ESTIMATED GFR (MDRD EQUATION) > 60; POTASSIUM 4.1 mMol/L (3.7-5.1); SODIUM 136 mMol/L (135-145)
[2017-01-24 02:42] LABS: BILIRUBIN URINE NEGATIVE (NEGATIVE); BLOOD URINE 25 /UL (NEGATIVE); COLOR URINE YELLOW (YELLOW); GLUCOSE URINE NEGATIVE (NEGATIVE); KETONE URINE NEGATIVE (NEGATIVE); LEUKOCYTES URINE 500 /UL (NEGATIVE); NITRITE URINE POSITIVE (NEGATIVE); PROTEIN URINE 30 mg/dL (NEGATIVE); TURBIDITY URINE 1+ (CLEAR); UROBILINOGEN URINE NORMAL (NORMAL)
[2017-01-24 02:48] LABS: BACTERIA URINE MANY (NEGATIVE); WBC URINE 50-100 #/HPF (NEGATIVE)
--- NOTE | 2017-01-24 05:30 | NUR ---
PATIENT IS AN 86 YEAR OLD FEMALE WHO FELL AT HER HOME AND HIT HER HEAD ON HER CLOSET DOOR. SHE HAS A LACERATION ABOVE HER LEFT EYEBROW AND ON TOP OF HER HEAD. AFTER HER FALL SHE BECAME CONFUSED, HAD SLURRED SPEECH, AND A LEFT FACIAL DROOP. SHE HAS SIGNIFICANT HX OF AFIB, ULCERS, PROLAPSE RECTURM, ANEMIA, THYROID ISSUES, LEFT SHOULD FRACTURE, SPINE FUSION, HYPERCHOLESTEROLEMIA. SHE CAME WITH AN IV TO HER LEFT AC. SHE IS BEING ADMITTED TO RULE OUT STROKE, AND FOR ELEVATED TROPONIN. ON HER WA FROM [facility] SHE GOT 40MEQ OF K PO AND 20MEQ IV. SHE ALSO RECIEVED ASPIRIN AND LIPITOR BEFORE ARRIVAL.
[2017-01-24 05:33] LABS: BASOPHIL # 0.1 K/uL (0.0-0.2); BASOPHIL % 0.5 %; EOSINOPHIL % 0.1 %; HEMATOCRIT 30.8 % (30.0-46.0); HEMOGLOBIN 10.3 g/dL (10.0-15.0); IMMATURE GRANULOCYTE # 0.2 K/uL (0.0-0.3); LYMPHOCYTE # 1.6 K/uL (0.8-4.0); LYMPHOCYTE % 9.9 %; MCH 39.8 pg (27.0-34.0); MCHC 33.4 gm/dL (32.0-36.5); MCV 118.9 fl (83.0-98.0); MONOCYTE # 2.3 K/uL (0.0-1.0); MONOCYTE % 14.5 %; MPV 11.8 fl (9.4-12.4); NRBC % 0 /100WBC (0-0.00); PLATELET COUNT 330 K/uL (150-450); RBC 2.59 M/uL (3.00-5.00); RDW-CV 13.6 % (11.9-14.6)
[2017-01-24 05:34] LABS: WBC 16.2 K/uL (4.0-11.0)
[2017-01-24 05:40] LABS: PROTIME 11.6 SECONDS (9.8-11.4); PTT 27 SECONDS (25-32)
[2017-01-24 05:55] LABS: ALBUMIN 2.2 gm/dL (3.5-5.0); ALK PHOS 98 IU/L (33-138); ALT 20 IU/L (12-78); ANION GAP 12.5 (10.0-19.0); AST 33 IU/L (10-40); BLOOD UREA NITROGEN 20 mg/dL (6-24); CALCIUM 8.7 mg/dL (8.5-10.5); CHLORIDE 100 mMol/L (96-110); CO2 26 mMol/L (22-32); CREATININE 0.8 mg/dL (0.5-1.1); ESTIMATED GFR (MDRD EQUATION) > 60; POTASSIUM 3.5 mMol/L (3.7-5.1); SODIUM 135 mMol/L (135-145); TOTAL BILIRUBIN 0.5 mg/dL (0.0-1.5); TOTAL PROTEIN 6.7 g/dL (6.0-8.4)
--- NOTE | 2017-01-24 07:01 | NUR ---
Significant Event: A/OX2. DISORIENTED TO TIME. STROKE SCALE 9. DENIES N/T. LEFT SIDED FACIAL DROOP. SLURRED SPEECH. APHASIC. COMPLAINS OF HEADACHE. WEAKNESS NOTED TO LEFT ARM - PATIENT STATED SHE FRACTURED HER SHOULDER 7 YEARS AGO AND NEVER GOT IT FIXED. LUNGS CLEAR AND DIMINISHED ON ROOM AIR. AFIB. SBP IN 110S. HEART RATE IN 80-90S. TEMP IN 99S. URINE CULTURE AND BLOOD CULTURES DONE. ZOSYN STARTED. IV TO LEFT AC RUNNING NS AT 50/HR. ACTIVITY TOLERATED. NPO UNTIL SPEECH EVALS. ACCUCHECK Q6. 0500 WAS 120. Follow up: MRI, MRA, ECHO TODAY
--- NOTE | 2017-01-24 08:32 | NUR ---
LILIAM CONSULT FOR STROKE DIET ED NOTED. WILL COMPLETE APPROPRIATE PRIOR TO DISMISSAL.
--- NOTE | 2017-01-24 13:00 | NUR ---
Conflict with other disciplines for patient evaluation on 2/2 attempts this date. Patient will be evaluated for occupational therapy tomorrow 01/25/17.
--- NOTE | 2017-01-24 16:04 | NUR ---
Significant Event: VSS. PATIENT A/O X 3, WAS DISORIENTED TO MONTH THIS AM BUT REORIENTED WELL. FOLLOWS COMMANDS. LEFT SIDED WEAKNESS. DENIES NUMBNESS/TINGLING. LEFT FACIAL DROOP. SLURRED SPEECH AND APHASIA NOTED. LUNGS CLEAR AND DIM ON ROOM AIR. C/O INTERMITTENT PAIN TO BACK, HEAD. BENGAY PUT ON BACK. REFUSED ANY RECTAL TYLENOL AT THIS TIME. MORPHINE ORDERED BUT PATIENT ALLERGIC TO MORPHINE. SPEECH ASSESSED PATIENT THIS AM, RECOMMENDED TO KEEP HER NPO AND WILL HAVE A MODIFIED SWALLOW STUDY IN THE AM. IV IN LEFT A/C CAME OUT, NEW IV IN RT UPPER ARM WITH NORMAL SALINE INFUSING AT 50MLS/HR. CURRENTLY HAS ROCEPHIN INFUSING. WILL GET SOME IV KCL AFTER THIS FOR K+ OF 3.5. ACCUCHECKS Q 6HRS PER STROKE ORDERS. MRI/MRA AND ECHO DONE TODAY. UP WITH 2 ASSIST AND WALKER. ALARMS ON FOR SAFETY. -NIHSS, MONITOR PAIN. MODIFIED STUDY IN THE AM. ANTIOBIOTICS FOR +UTI. Follow up:
--- NOTE | 2017-01-25 04:05 | NUR ---
Significant Event: Patient A/O x 3. Forgetful at times. Perrl. Denies N/T. Moves all extremities spontaneously and to command. L) extremities slightly weaker. Lungs clear on room air. PIV to right upper arm. Intermittent ABX and KCL currently running. NPO until MBS today. Incontinent at times, otherwise uses bedpan. Rectal tylenol given last at 0130. Has been running temp. 99.4-101.5. Rocepkajal D/Cd, naa and glen started this shift. C/O pain to back and right arm. Follow up:XRAY for R)shoulder/arm pain this am.
[2017-01-25] MEDS ORDERED: VITAMIN B-1000 MCG/M SUB-Q (10:59)
[2017-01-25] MEDS ORDERED: NEXIUM40 MG PO (10:59)
[2017-01-25] MEDS ORDERED: ADVIL200 MG PO (11:00)
[2017-01-25] MEDS ORDERED: VITAMIN D1000 UNIT PO (11:00)
[2017-01-25] MEDS ORDERED: VITAMIN C1000 MG PO (11:00)
--- NOTE | 2017-01-25 14:15 | NUR ---
1002 Talked with in the hallway. He states the just saw Sanchez and thinks that she would be a great GIRP canidate so I needed to phone [facility] to see when they would be able to accept her. 1005 Call to [facility], left a VM as she didn't answer to call me back on if/when they would be able to accept Sanchez. No call back as of this time ([id number]). 1115 Stopped by to see Sanchez and her family who were all at bedside, but therapies were in working with her so I didn't go in the room. Plan on coming back either later today or tomorrow to talk with them about eventual dismissal plans in RE:GIRP.
--- NOTE | 2017-01-25 18:52 | NUR ---
Significant Event: a/o x 3. NIHSS=10- left visual deficit, left facial droop, ataxia, speech impairment and drift left upper and lower extremities. pain to left [facility] where she fell and hit her head. steri strips to wound to head dry/intact. pain to head and right shoulder. tele- afib. MBS this am with orders for pureed diet with nectar thick liquids. takes meds whole or crushed in applesauce. 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 ambulates with walker/gait belt and one assist. continent/incontinent of urine. did have moderate incontinent bowel movement this aftn. x ray to right upper extremity done this am. plan- GIRP when ready. accuchecks Q 6 hours per stroke order set.
[2017-01-26 05:39] LABS: ANION GAP 8.7 (10.0-19.0); BLOOD UREA NITROGEN 16 mg/dL (6-24); CALCIUM 7.8 mg/dL (8.5-10.5); CHLORIDE 109 mMol/L (96-110); CO2 28 mMol/L (22-32); CREATININE 0.6 mg/dL (0.5-1.1); ESTIMATED GFR (MDRD EQUATION) > 60; MAGNESIUM 2.3 mg/dL (1.8-2.6); SODIUM 143 mMol/L (135-145)
[2017-01-26 05:41] LABS: POTASSIUM 2.7 mMol/L (3.7-5.1)
--- NOTE | 2017-01-26 05:46 | NUR ---
Significant Event: PATIENT IS ALERT AND ORIENTED X3. FOLLOWS COMMANDS. PERRLA. VSS. NIHSS-10. L) FACIAL DROOP, L) VISUAL IMPAIRMENT, APHASIC/SLURRED SPEECH. GENERALIZED WEAKNESS. AFIB-2+ PULSES, NO EDEMA. ROOM AIR. PUREE DIET WITH NECTAR THICKENED FLUIDS. LAST BM 01/26-ACTIVE. ACCU CHECKS PER STROKE. CONT/INCONT AT TIMES-WILL USE BEDPAN. 1-2A. PIV IN THE R) UPPER ARM TRANSFUSING NS AT 50. STERI STRIPS TO LEFT FOREHEAD. TAKES PILLS CRUSHED/WHOLE WITH APPLESAUCE. NO MILK PRODUCTS. Follow up: GIRP WHEN READY.
--- NOTE | 2017-01-26 12:39 | NUR ---
Introduced self and CM role to Xiomara. Reviewed her chart before entering her room. Confirmed with her that she was living at home in [place], [place] before coming into us. She tells me that it is her goal to return back home when she is able to do so. Let her know that [facility] would be willing to accept her on Saturday 01/27 if she was in agreement with going there. She tells me that she is, but she would also like for me to call her son and update him to this as well and make sure that he doesn't have any questions for me. Let iXomara know I would call her son Umang and we would go from there. She denied any other questions, needs or concerns. I called son Umang, , and left a VM as he didn't answer. Requested that he call me back when he could so I could update him to the plan to have his mom go to [facility] on Wednesday. No call back from him at this point and time. CM to continue to follow and assist. Plan [facility] on Wednesday.
--- NOTE | 2017-01-26 14:54 | NUR ---
Significant Event: Patient A/O X 3. Aphasic at times with slurring. NIHSS 10. Pupils 3BB. Genralized weakness. L) visual impairment. L) facial droop. Afib. VSS. Room air with sats in the mid 90s. LS clear and diminished. Pureed diet with nectar thcik liquids. Pills crushed in applesauce. Continent and incontinent of urine and stool. Forehead laceration with steri-strips. Redness to back at times. CARA PIV. NS running at 50 ml/hr. Potassium running. Decreased rate because patient was in some discomfort. 1 asssit with gaitbelt and cruz. Accuchecks D/Cd. Denies pain. Pleasant and cooperative with cares. CT of C-Spine this shift. Follow up: [facility] tomorrow
--- NOTE | 2017-01-27 03:51 | NUR ---
Significant Event:PATIENT IS ALERT AND ORIENTED X3.FOLLOWS COMMANDS. PERRLA. DENIES N/T,WELLER, AND BLURRED VISION. VSS. AFEBRILE. GENERALIZED WEAKNESS. APHASIC/SLURRED SPEECH. L) FACIAL DROOP. NIHSS-10. AFIB. HR 90-100'S. SBP ONE-TEENS TO 130'S. TEDS ON DURING DAY- 1+ IN BLE. ROOM AIR. DOES HAVE AN OCCASSIONAL COUGH NON-PRODUCTIVE. PUREE DIET WITH NECTAR THICKENED LIQUIDS-CRUSH MEDS GIVE WITH APPLESAUCE. LIKES APPLE JUICE. BM ON 01/26-ACTIVE. 1A GB/WALKER. STERI-STRIPS TO THE LEFT FOREHEAD. PIV TO RIGHT UPPER ARM WITH NS AT 50. FENTANYL PATCH TO CHEST. Follow up: GIRP AROUND 1300 TODAY. DID NOT GET A ROOM NUMBER SINCE THEY MOVED THE UNIT TO THE 4TH FLOOR.
[2017-01-27 04:38] LABS: ANION GAP 11.1 (10.0-19.0); BLOOD UREA NITROGEN 15 mg/dL (6-24); CALCIUM 8.1 mg/dL (8.5-10.5); CHLORIDE 115 mMol/L (96-110); CO2 24 mMol/L (22-32); CREATININE 0.5 mg/dL (0.5-1.1); ESTIMATED GFR (MDRD EQUATION) > 60; MAGNESIUM 2.2 mg/dL (1.8-2.6); POTASSIUM 4.1 mMol/L (3.7-5.1)
[2017-01-27 04:43] LABS: SODIUM 146 mMol/L (135-145)
--- NOTE | 2017-01-27 10:47 | NUR ---
Patient A/O X3. NIHSS 10. L) facial droop. L) arm and leg drift. Slurred speech at times. Denies N/T. VSS. Hypertensive at times. Home atenolol restarted this shift. Afebrile. No edema noted. Room air with sats in the mid 90s. LS clear and diminished. Incontient at times of stool. BM X3 this shift. hospitalist did order CDIFF sample. Not collected as of yet. Pureed diet with nectar thick liquids. Pills crushed in applesauce. L) facial laceration wit hsteri strips. CARA PIV. SLL. D/C prior to transfer to [place] [id number] assist with gaitbelt and walker. Tylenol given this AM for pain. Patient COCOPAH. Pleasant and cooperative [facility] cares.
--- NOTE | 2017-01-27 11:59 | NUR ---
Significant Event: Please refer to transfer note. Patient transferred to [facility] at 1140. Report called and given to Radha. Follow up:
== END 2017-01-27 11:35 | DRG 64 ==
LOC: GICU 23:35
PROVIDERS: Nurse Practitioner Family; ADMIT Internal Medicine
DX: I63.9 Cerebral infarction, unspecified (principal); E43 Unspecified severe protein-calorie malnutrition; I50.31 Acute diastolic (congestive) heart failure; I48.91 Unspecified atrial fibrillation; E87.1 Hypo-osmolality and hyponatremia; N39.0 Urinary tract infection, site not specified; R13.10 Dysphagia, unspecified; R29.810 Facial weakness; R47.81 Slurred speech; E03.9 Hypothyroidism, unspecified; E87.6 Hypokalemia; I11.0 Hypertensive heart disease with heart failure; W19.XXXA Unspecified fall, initial encounter; Z90.710 Acquired absence of both cervix and uterus; Z88.6 Allergy status to analgesic agent; Z96.653 Presence of artificial knee joint, bilateral; Z98.1 Arthrodesis status; Z88.5 Allergy status to narcotic agent; Z88.2 Allergy status to sulfonamides
CPT/HCPCS: A9577; J0696; J1650; J2001; J2543; J3370; J3480; J7030; J7040; J7050

== ENCOUNTER 2017-01-27 12:07 | Inpatient (IN) | payer MEDICARE ==
[~2017-01-27] VITALS: Ht 154.9 cm; Wt 43.8 kg
--- NOTE | ~2017-01-27 | DS ---
PATIENT'S NAME: DIALLO COLEMAN [facility] AGE: 86 Y [address] ROOM: [id number] [place], [place] [address] LOCATION: [facility] ADMIT DATE: 01/27/2017 Discharge Summary DISCHARGE DATE: 02/05/2017 FAMILY PHYSICIAN: Mitch Thibodeaux MD ATTENDING PHYSICIAN: Peter Cason HISTORY: This 86-year-old lady was admitted to rehab unit at [facility] on 01/27/2017, is discharged to home on 02/05/2017. 1. She was with unstable gait. 2. Dependent activities of daily living and self-care. 3. Left hemiplegia secondary to CVA with slurred speech and difficulty swallowing, which has improved. DISCHARGE PHYSICAL EXAMINATION: GENERAL: At the present time, she is alert and oriented. VITAL SIGNS: Blood pressure 99/59, temperature 97.9, pulse 81, respiratory rate 14, and atenolol has been cut down so that her blood pressure will go up. She ambulates 120 feet x3 and 100 feet x1 and 200 feet x1 and 250 feet x1. All with standby acquisitions assistant negotiated 4 steps with bilateral rails. HOSPITAL COURSE: She is at the present time, doing well. She will continue on outpatient basis; PT, OT, and Speech 3 times per week for 4 weeks and I will see her after 4 weeks for followup. 1. She must follow with her family physician as soon as possible. 2. She should not drive and/or operate any mechanical or electrical device until she is evaluated. 3. All her medication as per discharge summary and any renewal, addition, or deletion of any medications through her family physician please. DISCHARGE MEDICATIONS: She is on the following medications. 1. Vitamin C 1000 mg p.o. daily. 2. Tenormin 37.5 mg twice daily. 3. Lipitor 40 mg p.o. in the evening. 4. Vitamin D 1000 units p.o. daily. 5. Plavix 75 mg p.o. in the morning. 6. Vitamin B12 of 1000 mcg subcu every 3 days. 7. Duragesic 12 mcg topical every 72 hours, give for 30 days. 8. Neurontin 100 mg p.o. b.i.d. 9. Lactinex one tablet p.o. daily. 10. Levothroid 125 mcg p.o. daily. 11. Tylenol 650 q.6 hours, 36 do not exceed acetaminophen 4 g every 24 hours. 12. Pepto-Bismol 1 mL give 30 mL p.o. q.6 hours. PATIENT'S NAME: DIALLO COLEMAN [facility] AGE: 86 Y [address] ROOM: [place] [address] LOCATION: [facility] ADMIT DATE: 01/27/2017 Discharge Summary DISCHARGE DATE: 02/05/2017 FAMILY PHYSICIAN: Mitch Thibodeaux MD ATTENDING PHYSICIAN: Peter Cason 13. Imodium 2 mg p.o. p.r.n. as needed. FINAL DIAGNOSES: 1. Unstable gait. 2. Dependent activities of daily living and self-care. 3. Status post left hemiplegia secondary to right ischemic stroke involving right frontal cerebral lobe. 4. Hypertension. 5. Osteoporosis. 6. Hypothyroid. 7. 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 8. Arthritis. 9. Chronic back pain status post cervical spine surgical procedure. 10. Knee and shoulder surgical procedure. 11. Neuropathy. DISCHARGE INSTRUCTIONS: The patient is to follow with her family physician as soon as possible. As I mentioned, all her medication through her family physician please. At the present time, she is not to drive and/or operate any mechanical or electrical device until she is re-evaluated. She verbalized understanding to all of the above. PETER CASON MD WMS/modl /[id number] d: 02/05/17 1135 t: 02/06/17 0753, DISCHARGE SUMMARY
--- NOTE | ~2017-01-27 | HP ---
PATIENT'S NAME: DIALLO COLEMAN [facility] AGE: 86 Y [address] ROOM: [id number] [place] [address] LOCATION: [facility] ADMIT DATE: 01/27/2017 History & Physical DISCHARGE DATE: FAMILY PHYSICIAN: Mitch Thibodeaux MD ATTENDING PHYSICIAN: Peter Cason DATE OF SERVICE: HISTORY OF PRESENT ILLNESS: This 86-year-old lady is admitted for continuous medical treatment and intensive rehabilitation to rehab unit at [facility] on 01/27/2017. 1. She is with unstable gait. 2. Dependent activities and self-care. 3. Status post left hemiplegia secondary to right ischemic stroke involving right frontal cerebral region with slurring of speech and unstable gait at high risk of falling, dependent activity of daily and self-care. She is admitted for continuous medical treatment and intensive rehabilitation. Alert and fairly well oriented. Vitals on admission, blood pressure 145/65, temperature 97.5, pulse 103, and respiration rate 18. She is 5 feet 4 inches tall and weighs 39.7 kg. ALLERGIES: SHE IS ALLERGIC TO SULFA, ASPIRIN, MORPHINE, TERRAMYCIN, FOSAMAX, MIRAPEX, HYDROCODONE, AND CODEINE. MEDICATIONS: She is at the present time on the following medications. 1. Vitamin C 1000 mg p.o. daily. 2. Tenormin 50 mg p.o. twice daily. Hold if systolic blood pressure below 110. 3. Lipitor 40 mg p.o. daily. 4. Vitamin D 1000 units every day. 5. Plavix 75 mg p.o. daily. 6. Vitamin B12 of 1000 mcg subcu every 3 days. 7. Lovenox 40 mg subcu daily. 8. Duragesic patch 12 mcg patch every 72 hours. 9. Lactinex one tablet p.o. daily. 10. Levothroid 125 mcg p.o. daily. 11. Protonix 40 mg p.o. daily. 12. Tylenol 650 q.6 h., do not exceed acetaminophen 4 g every 24 hours. 13. BenGay apply topical p.r.n. 4 times daily. 14. Sodium chloride 10 mL for flush p.r.n. 15. Neurontin 100 mg b.i.d. p.o. PATIENT'S NAME: DIALLO COLEMAN [facility] AGE: 86 Y [address] ROOM: [address] [place] [address] LOCATION: [facility] ADMIT DATE: 01/27/2017 History & Physical DISCHARGE DATE: FAMILY PHYSICIAN: Mitch Thibodeaux MD ATTENDING PHYSICIAN: Peter Cason 16. Levaquin 750 p.o. daily start on 01/28, 4 to 5 doses. PAST MEDICAL HISTORY: Past history of significance as follows. 1. History of hypertension. 2. Hypothyroid. 3. Chronic low back pain status post cervical surgical procedure. 4. Status post hysterectomy. 5. Gastric bypass per history. 6. Knee surgery. 7. Right shoulder surgery. 8. Dyslipidemia. 9. At the present time, she is going to be put on intensive PT, OT, speech x3 hours per day, 15 hours per week for about maybe 2 weeks aiming to discharge on modified independence. DIAGNOSTIC DATA: Her MRI on 01/24/2017, showed acute ischemic infarct in the right cerebral hemisphere including the posterior and right frontal region. Her CBC on 01/28/2017, was as follows. White BC 7.1, RBC 2.12, hemoglobin 8.6, hematocrit 26.4, and platelets 414. CMS: Sodium 145, potassium 3.8, chloride 114, CO2 of 25, BUN 15, creatinine 0.5, and glucose 88. Prealbumin 12. ASSESSMENT AND PLAN: She can ambulate at the present time, up to 100 feet x2 with minimum assistance and slow but consistent. She is well motivated. We will continue her on hospitalist and neurologist to follow on her as needed. All the above was explained to her. She verbalized understanding and agreement. PETER CASON MD WMS/modl /[id number] D: T: 319 HISTORY & PHYSICAL
--- NOTE | ~2017-01-27 | DS ---
PATIENT'S NAME: DIALLO COLEMAN [facility] AGE: 86 Y [address] ROOM: [address] [place], [place] [address] LOCATION: [facility] ADMIT DATE: 01/27/2017 Discharge Summary DISCHARGE DATE: 02/05/2017 FAMILY PHYSICIAN: Mitch Thibodeaux MD ATTENDING PHYSICIAN: Brandt Cason PRINCIPAL DIAGNOSES: 1. New onset of atrial fibrillation. 2. Right ischemic cerebrovascular event. 3. Fall. 4. Left scalp laceration. 5. Essential hypertension. 6. Escherichia coli bacteremia and urinary tract infection. HISTORY OF PRESENT ILLNESS: Please refer to HPI, Neurology, and Cardiology, as well as Rehab Services' notes, but briefly, an 86-year-old lady, who suffered a fall, and was seen in outlying facility. There, she was found to be in atrial fibrillation with RVR. She had left-sided facial droop as well as slurred speech. A CAT scan of the head was unremarkable, and a diagnosis of acute ischemic stroke was made. She was not a candidate for tPA. She was transferred here for further medical care at [facility]. HOSPITAL COURSE: She was evaluated by Neurology as well as Cardiology. They recommended anticoagulation when okay with Neurology. During the course of the hospitalization, she developed E. coli bacteremia as well as urinary tract infection, which were treated appropriately. She was transferred to Inpatient Rehab for rehabilitation. She progressed well during the course of her stay here. Neurology was again contacted for the advice to start the anticoagulation and started her on Coumadin. DISCHARGE INSTRUCTIONS: She is going to be discharged today, and needs to follow up with her primary care physician on Wednesday with the INR. She will also follow up with Dr. Kat regarding further management of atrial fibrillation as well as heart failure. DISCHARGE MEDICATIONS: Include 1. Vitamin C. 2. Atenolol 50 mg p.o. twice daily. 3. Vitamin D3, 1000 units p.o. every day. 4. Plavix 75 mg p.o. every morning. 5. Cyanocobalamin/B12, 1000 mcg subq every thirty days. 6. Fentanyl patch 12 mcg every 72 hours. 7. Gabapentin 100 mg p.o. twice daily. 8. Lactobacillus for 30 days. 9. Levothyroxine 125 mcg tablet daily. PATIENT'S NAME: DIALLO COLEMAN [facility] AGE: 86 Y [address] ROOM: [place] [address] LOCATION: [facility] ADMIT DATE: 01/27/2017 Discharge Summary DISCHARGE DATE: 02/05/2017 FAMILY PHYSICIAN: Mitch Thibodeaux MD ATTENDING PHYSICIAN: Brandt Cason 10. Pantoprazole 40 mg p.o. daily. 11. Tylenol. 12. Bismuth salicylate. 13. Loperamide as needed. New medication is Coumadin 3 mg p.o. daily until INR is checked by the PCP on 02/08/2017. DISCHARGE FOLLOWUP: 1. Follow up with Dr. Kat from Cardiology. 2. Follow up with the primary care physician on Wednesday. MD AFRICA TORRES/kari /[id number] d: 02/06/17 0756 t: 02/15/17 0901, DISCHARGE SUMMARY
--- NOTE | ~2017-01-27 | CON ---
PATIENT'S NAME: DIALLO COLEMAN [facility] AGE: 86 Y [address] ROOM: [address] [place], [place] [address] LOCATION: [facility] ADMIT DATE: 01/27/2017 Consultation DISCHARGE DATE: FAMILY PHYSICIAN: Mitch Thibodeaux MD ATTENDING PHYSICIAN: Brandt Laura DATE OF CONSULTATION: 01/27/2017 REFERRING PHYSICIAN: ODILIA HOGUE MD TEAM MEMBERS REPORTING: Include Dr. Laura; Jodi Christine, social worker health services; Radha Palencia RN; Jeniffer Hutton, PT; Alysia Rodriges, PT; Hien Tamez, OT; Adamaris Gillespie, Speech Therapy; Janie Huang, therapeutic rec; and Sister Zulay Alba, pastreading Care. CURRENT STATUS: Diallo is an 86-year-old woman, admitted to our inpatient rehab unit on January 27, 2017 following a CVA. The patient does have a left-sided facial droop. She has a history of hypothyroidism and hypertension. The patient is incontinent of bowel at times and continent of bladder. She has a fentanyl patch for pain. The patient can complete all of her transfers at contact guard assistance. She does have left-sided neglect. She can ambulate 100 feet with minimal assistance for managing her walker. She has not been stairs at this time. Goals have been set for standby to mod I. The patient can complete lower body dressing, at max assistance; grooming, contact guard assistance; toilet transfers, contact guard assistance. She is dependent for toileting. Her goals for OT have been set for standby assistance. The patient is tolerating a pureed nectar thickened liquid diet. She does have some premorbid dementia. DISCHARGE PLAN: The patient is receiving 3 hours of PT, OT, and speech Wednesday through Wednesday. The patient has daily rehab, nursing, and physiatry involvement as well as therapeutic recreational services 4 days per week. The patient has shown functional improvement and is progressing. Please see her plan of care for specific goals. Plan is for patient to discharge in approximately 2-3 weeks. Plan is for patient to return to home with her family. JODI CHRISTINE FOR BRANDT LAURA MD TD/modl PATIENT'S NAME: DIALLO COLEMAN [facility] AGE: 86 Y [address] ROOM: [place] [address] LOCATION: [facility] ADMIT DATE: 01/27/2017 Consultation DISCHARGE DATE: FAMILY PHYSICIAN: Mitch Thibodeaux MD ATTENDING PHYSICIAN: Brandt Laura /[id number] d: 02/01/17 1258 t: 02/15/17 1412, CONSULTATION REPORT
--- NOTE | ~2017-01-27 | CON ---
PATIENT'S NAME: DIALLO COLEMAN [facility] AGE: 86 Y [address] ROOM: [address] [place], [place] [address] LOCATION: [facility] ADMIT DATE: 01/27/2017 Consultation DISCHARGE DATE: 02/05/2017 FAMILY PHYSICIAN: Mitch Thibodeaux MD ATTENDING PHYSICIAN: Brandt Laura DATE OF CONSULTATION: 02/03/2017 REFERRING PHYSICIAN: Jacob Pan MD TEAM MEMBERS REPORTING: Dr. Laura; Jodi Christine, director social welfare; Libia Buckley, RN; Jeniffer Hutton, PT; Alysia Rodriges, PT; Hien Tamez, OT; Adamaris Gillespie, Speech Therapy; Janie Huang, therapeutic rec; and Sister Zulay Alba, Pastoral Care, also present was Nirmala from Pharmacy. CURRENT STATUS: Diallo is an 86-year-old woman, admitted to our inpatient rehab unit on January 27, 2017, following a CVA with left-sided weakness. The patient is incontinent of bowel and bladder. Takes Tylenol for pain. She is on a pureed diet, nectar thickened liquids. She is able to complete all of her transfers at standby. She can walk 150 feet with a four-wheeled walker at standby. The patient is quick and needs cues to slow down. She can climb 4 stairs with 2 railings at minimal assistance. She has met 4/9 short-term PT goals. The patient can dress her upper body at minimal assistance, lower body moderate assistance. Grooming, contact guard assistance. Bathing, minimal assistance. Toilet and shower transfers, contact guard assistance and toileting, moderate assistance. She has met 2/5 short-term OT goals. The patient's comprehension is at minimal assistance. Language and expression, standby to mod I. Memory and problem solving, minimal assistance. No concerns for pastoral care. Pharmacy continues to monitor medications. DISCHARGE PLAN: The patient is receiving 3 hours of PT, OT, and speech Wednesday through Wednesday. The patient has daily rehab, nursing, and Physiatry involvement as well as therapeutic recreational services. The patient has shown functional improvement and is progressing. Please see her plan of care for specific goals. Plan is for patient to discharge on February 05, 2017. The patient will go home with outpatient therapy services. The patient lives with her son and [id number]. JODI CHRISTINE FOR BRANDT LAURA MD PATIENT'S NAME: DIALLO COLEMAN [facility] AGE: 86 Y [address] ROOM: [place] [address] LOCATION: [facility] ADMIT DATE: 01/27/2017 Consultation DISCHARGE DATE: 02/05/2017 FAMILY PHYSICIAN: Mitch Thibodeaux MD ATTENDING PHYSICIAN: Brandt Laura TD/mitchl /[id number] d: 02/21/17 1616 t: 03/05/17 1136, CONSULTATION REPORT
[~2017-01-27 12:07] MED LIST: ADVIL200 MG PO; DURAGESIC1 EAC3 TRANS; HYDRODIURIL12.5 MG PO; KCL UD LIQ20 MEQ/15 PO; LEVOTHROID (S100 MCG PO; LEVOTHROID (S125 MCG PO; NEURONTIN100 MG PO; NEXIUM40 MG PO; PROBIOTIC1 EAC1 PO; TENORMIN25 MG PO; VITAMIN B-1000 MCG/M SUB-Q; VITAMIN C1000 MG PO; VITAMIN D1000 UNIT PO
[2017-01-28 04:39] LABS: HEMATOCRIT 26.4 % (30.0-46.0); HEMOGLOBIN 8.6 g/dL (10.0-15.0); MCH 40.6 pg (27.0-34.0); MCHC 32.6 gm/dL (32.0-36.5); MCV 124.5 fl (83.0-98.0); MPV 11.9 fl (9.4-12.4); PLATELET COUNT 414 K/uL (150-450); RBC 2.12 M/uL (3.00-5.00); RDW-CV 14.1 % (11.9-14.6); WBC 7.1 K/uL (4.0-11.0)
[2017-01-28 04:56] LABS: ALK PHOS 74 IU/L (33-138); ALT 13 IU/L (12-78); ANION GAP 9.8 (10.0-19.0); AST 18 IU/L (10-40); BLOOD UREA NITROGEN 15 mg/dL (6-24); CALCIUM 8.6 mg/dL (8.5-10.5); CHLORIDE 114 mMol/L (96-110); CO2 25 mMol/L (22-32); CREATININE 0.5 mg/dL (0.5-1.1); ESTIMATED GFR (MDRD EQUATION) > 60; POTASSIUM 3.8 mMol/L (3.7-5.1); SODIUM 145 mMol/L (135-145)
[2017-01-28 04:57] LABS: TOTAL BILIRUBIN 0.3 mg/dL (0.0-1.5)
[2017-01-28 09:45] LABS: ABSOLUTE NEUTROPHIL CT (ANC) 4.1 K/uL (1.8-7.8); BANDED NEUTROPHIL # 1.7 K/uL (0.0-0.1); BANDED NEUTROPHILS % 24 %; LYMPHOCYTE # 2.3 K/uL (0.8-4.0); LYMPHOCYTE % 23 %; MONOCYTE # 0.4 K/uL (0.0-1.0); SEGMENTED NEUTROPHIL # 2.4 K/uL (1.8-7.8); SEGMENTED NEUTROPHIL % 34 %
[2017-01-31 13:00] LABS: HEMATOCRIT 30.2 % (30.0-46.0); HEMOGLOBIN 9.6 g/dL (10.0-15.0); MCH 39.3 pg (27.0-34.0); MCHC 31.8 gm/dL (32.0-36.5); MCV 123.8 fl (83.0-98.0); MPV 11.9 fl (9.4-12.4); RBC 2.44 M/uL (3.00-5.00); RDW-CV 14.4 % (11.9-14.6); WBC 8.2 K/uL (4.0-11.0)
[2017-01-31 13:10] LABS: PLATELET COUNT 514 K/uL (150-450)
[2017-01-31 13:36] LABS: ABSOLUTE NEUTROPHIL CT (ANC) 4.8 K/uL (1.8-7.8); BANDED NEUTROPHIL # 2.8 K/uL (0.0-0.1); BANDED NEUTROPHILS % 34 %; LYMPHOCYTE # 2.9 K/uL (0.8-4.0); LYMPHOCYTE % 35 %; MONOCYTE # 0.3 K/uL (0.0-1.0); SEGMENTED NEUTROPHIL # 2.1 K/uL (1.8-7.8); SEGMENTED NEUTROPHIL % 25 %
[2017-02-01 05:07] LABS: HEMATOCRIT 24.9 % (30.0-46.0); MCH 38.8 pg (27.0-34.0); MCHC 32.1 gm/dL (32.0-36.5); MCV 120.9 fl (83.0-98.0); MPV 11.9 fl (9.4-12.4); PLATELET COUNT 423 K/uL (150-450); RBC 2.06 M/uL (3.00-5.00); WBC 6.5 K/uL (4.0-11.0)
[2017-02-01 06:14] LABS: ABSOLUTE NEUTROPHIL CT (ANC) 2.9 K/uL (1.8-7.8); BANDED NEUTROPHIL # 1.2 K/uL (0.0-0.1); BANDED NEUTROPHILS % 19 %; LYMPHOCYTE # 3.1 K/uL (0.8-4.0); LYMPHOCYTE % 48 %; MONOCYTE # 0.3 K/uL (0.0-1.0); SEGMENTED NEUTROPHIL # 1.7 K/uL (1.8-7.8); SEGMENTED NEUTROPHIL % 26 %
[2017-02-02 06:04] LABS: HEMATOCRIT 27.4 % (30.0-46.0); HEMOGLOBIN 8.8 g/dL (10.0-15.0)
[2017-02-02 06:26] LABS: ALBUMIN 2.3 gm/dL (3.5-5.0); ANION GAP 9.3 (10.0-19.0); CALCIUM 9.1 mg/dL (8.5-10.5); CREATININE 0.7 mg/dL (0.5-1.1); POTASSIUM 4.3 mMol/L (3.7-5.1); TOTAL BILIRUBIN 0.3 mg/dL (0.0-1.5); TOTAL PROTEIN 5.9 g/dL (6.0-8.4)
[2017-02-05 04:44] LABS: INR - (THERAPEUTIC) 1.06 (0.92-1.07); PROTIME 11.1 SECONDS (9.8-11.4)
[2017-02-05] MEDS ORDERED: LIPITOR40 MG PO (10:05)
[2017-02-05] MEDS ORDERED: PLAVIX75 MG PO (10:06)
[2017-02-05] MEDS ORDERED: VITAMIN B-121000 MCG SUB-Q (10:08)
[2017-02-05] MEDS ORDERED: PROTONIX40 MG PO (10:11)
[2017-02-05] MEDS ORDERED: TYLENOL325 MG PO (10:12)
[2017-02-05] MEDS ORDERED: PEPTO BISMOL LIQ1 ML PO (10:13)
[2017-02-05] MEDS ORDERED: IMODIUM2 MG PO (10:14)
[2017-02-05] MEDS ORDERED: COUMADIN ** IA3 MG PO (10:42)
== END 2017-02-05 11:45 | disposition disaster alternative care site (69) | DRG 92 ==
LOC: GIRP 12:07
PROVIDERS: Internal Medicine; ADMIT Physical Medicine & Rehabilitation
DX: R26.81 Unsteadiness on feet (principal); I69.354 Hemiplegia and hemiparesis following cerebral infarction affecting left non-dominant side; I10 Essential (primary) hypertension; Z74.1 Need for assistance with personal care; Z88.8 Allergy status to other drugs, medicaments and biological substances; E03.9 Hypothyroidism, unspecified; E78.5 Hyperlipidemia, unspecified
CPT/HCPCS: A9270; J1650